=== PATIENT | female | born 1990 | race Caucasian/White ===

== ENCOUNTER 2020-04-20 07:13 | Outpatient (CLI) | payer OTHER, SELFPAY ==
[2020-04-20 08:07] LABS: Beta HCG Quantitative < 2.39 mIU/ML
== END 2020-04-20 07:14 | disposition home or self-care (01) ==
PROVIDERS: PCP Nurse Practitioner Family; Visit Provider Nurse Practitioner Obstetrics & Gynecology
DX: Z30.9 Encounter for contraceptive management, unspecified (principal)
CPT/HCPCS: 36415; 84702

== ENCOUNTER 2023-01-08 06:43 | Inpatient (IN) | payer OTHER, SELFPAY ==
[2023-01-08] VITALS (14 sets, daily range): BP systolic 81–148; BP diastolic 40–106; PULSE 79–220; RESP 16–18; TEMP 36.3–37; O2SAT 99; BMI 32.6
--- NOTE | 2023-01-08 07:05 | PC.NURSE ---
Patient is refusing antibiotics at this time.
--- NOTE | 2023-01-08 07:06 | PC.NURSE ---
Addendum entered by Justina Pettit RN 01/08/23 09:12: this note was completed at 0706 Original Note: Education has been provided regarding GBS status and risk to at . Patient continues to refuse antibiotics.
[2023-01-08] MEDS: LACTATED RINGERS 1,000 ML 125 ML IV CONT (07:09)
[2023-01-08 07:17] LABS: Basophils Percent Auto 0.2 % (0.2-1.2); Eosinophils Percent Auto 0.1 % (0-4.4); Hematocrit 37.7 % (37.0-47.0); Hemoglobin 12.9 g/dL (12.0-15.0); Immature Granulocyte Absolute 0.06 K/mm3 (0.00-0.031); Immature Granulocyte Percent A 0.3 % (0-0.5); Lymphocytes Absolute Auto 0.91 K/mm3 (0.9-3.2); Lymphocytes Percent Auto 5.3 % (18.3-44.2); Mean Corpuscular HGB Conc 34.2 g/dl (32-36); Mean Corpuscular Hemoglobin 28.6 pg (26-34); Mean Corpuscular Volume 83.6 fl (80-100); Mean Platelet Volume 11.5 fl (7.4-10.4); Monocytes Absolute Auto 0.9 K/mm3 (0.1-0.6); Monocytes Percent Auto 5.1 % (2.6-8.5); Neutrophils Absolute Auto 15.3 K/mm3 (1.3-6.7); Platelet Count Result 249 k/mm3 (150-375); Red Blood Count 4.51 M/mm3 (4.2-5.4); Red Cell Distribution Width 13.8 % (11.5-14.5); White Blood Count 17.2 K/mm3 (4.5-10.0)
[2023-01-08 09:10] LABS: Hepatitis B Surface Antigen Negative (Negative)
[2023-01-08 09:16] LABS: Rubella IgG Antibody 8.3 IU/ML
[2023-01-08 10:23] LABS: HIV 1/2 Ab P24 Ag Result Negative (Negative)
--- NOTE | 2023-01-08 10:58 | PM.OBPRVD ---
OB - Vaginal Delivery Note Procedure Delivery date: 01/09/23 Events: No Care Delivery monitor: External FHT Route of delivery: Episiotomy description: None Laceration Description: Other (Small introital tear non bleeding no suture required) Specimen: Yes (Placenta and cord) Quantitative Blood Loss (ml): 200 Anesthesia type: None Disposition: Floor Complications: No immediate complications Narrative: She was admitted after arriving via EMS. She arrived on Labor and delivery she was 9 cm. She refused IV antibiotics that was recommended. She reports no care. She was planning on delivering at home but stated it was taking a while. She started having contractions at 3:00 p.m.. This is her 4th . She continued to progress in labor and had spontaneous rupture of membranes at that time she had anterior lip and she progressed to complete soon after. She delivered a male in the direct OP presentation the nose and mouth were suction with the bulb at the perineum she then pushed and anterior shoulders and the rest the was delivered infant was vigorously crying upon delivery and placed on maternal abdomen. Delayed cord clamping for approximately 60 seconds until the cord was a pulsatile and then the cord was doubly clamped and cut. There was noted to be terminal meconium. She refused Pitocin. Placenta delivered spontaneously and appeared intact. The membranes on 1 side did appear sheared. She did not allow uterine massage. Her bleeding was minimal. She sustained a small laceration at the introitus which was not bleeding. Baby Date of : 01/08/23 Time of : 07:46 Weeks of gestation at delivery: 39 Infant gender: Male Weight (pounds): 7 Weight (ounces): 0 presentation: vertex position: Right Occiput Posterior Placenta delivery description: Spontaneous Cord Vessel Description: 3 Vessels score one minute: 8 score five minutes: 9 AMG Delivery Billing Delivery Delivery: Delivery Charge
[2023-01-08] MEDS: WITCH HAZEL 40 PADS 1 PAD TOPICAL (11:45)
[2023-01-08] MEDS: BENZOCAINE 20% AER SPR (*SP) 56 GM CAN 1 SPRAY TOPICAL (11:46)
--- NOTE | 2023-01-08 11:50 | OBPPTRN ---
Patient transferred to post room # 283 via wheelchair. PT accompanied by in open crib. Support person present and then left. PT introductions made and plan of care discussed per post , pain management, breast/bottle feeding, daily care activities. PT received such instructions and no barriers to learning identified at this time. PT received such instructions per one to one discussion, mom baby care guide and demonstrations this shift. Oriented to unit, room, information board, rooming in, admission packet and security measures. Patient verbalizes understanding.
[2023-01-08 12:43] LABS: Rapid Plasma Reagin Non-Reactive (NonReactive)
[2023-01-08] MEDS: IBUPROFEN 600 MG TABLET PO (12:50)
[2023-01-08] MEDS: ACETAMINOPHEN 325 MG TABLET 650 MG PO (17:02)
[2023-01-08] MEDS: DOCUSATE SODIUM 100 MG CAPSULE PO (17:02)
[2023-01-08 20:53] LABS: Amphetamine Screen Urine Negative (Negative); Barbiturate Screen Urine Negative (Negative); Benzodiazepines Screen Urine Negative (Negative); Cannabinoid Screen Urine Negative (Negative); Cocaine Screen Urine Negative (Negative); Methadone Screen Urine Negative (Negative); Opiate Screen Urine Negative (Negative); Phencyclidine Screen Urine Negative (Negative)
[2023-01-09 04:10] VITALS: BP 112/69; PULSE 69; RESP 18; TEMP 36.6; O2SAT 100
--- NOTE | 2023-01-09 04:20 | PC.NURSE ---
RN attempted patient's morning H+H lab draw, was unsuccessful, and patient now refusing blood draw. Bleeding minimal with no lightheadedness.
--- NOTE | 2023-01-09 07:20 | PM.IMHP ---
H&P: HPI History of Present Illness Date/Time: 01/08/23 07:20 Chief Complaint: Labor Narrative: She presented via EMS to Labor and delivery in labor. She states she did not get care. She was anticipating delivering at home she started shorty at 3:00 p.m. yesterday and states she called EMS due to the Labor taking longer than what she has had in the past. She is a . Last baby was 19 months ago. On arrival to Labor and delivery she was 9 cm shorty regularly bag of water intact. No records or labs available. Review of Systems Review of Systems: All systems reviewed & are unremarkable except as noted in HPI and below Constitutional: Constitutional: Reports no additional constitutional complaints and Denies headache(s) Eyes: Eyes: Denies spots in vision ENT: Reports system reviewed and no additional complaints, except as documented and Denies headache(s) Cardiovascular: Cardiovascular: Denies chest pain and Denies dyspnea Respiratory: Respiratory: Denies dyspnea Gastrointestinal: Gastrointestinal: Reports no additional gastrointestinal complaints Genitourinary: Genitourinary: Reports amenorrhea Musculoskeletal: Musculoskeletal: Reports no additional musculoskeletal complaints Integumentary/Breasts: Skin/Breast: Denies breast mass and Denies rash Neurologic: Denies headache(s) Psychiatric: Psychiatric: Reports no additional psychiatric complaints [facility] Social History Social History (Updated 03/27/22 @ 13:25 by Aleja Frederick [facility]) Smoking status: Never smoker Second hand tobacco smoke exposure: No Alcohol intake: never Substance use: never Substance use type: does not use Lack of Transportation: No Lack of Food: Never True Current Housing: I Have Housing Concerned About Future Housing: No Difficulty Paying Gas/Electric Bills: No Difficulty Paying for Meds: No Currently Unemployed: No Education: Associate Degree Difficulty w/ Childcare or Family Care: No Living arrangements: with family Occupation/Education: occupation Gender identity (if verbalized by the patient): Female Sexual Orientation (if Verbalized by the Patient): Straight or Heterosexual Spiritual care concerns: No Agree to blood products: Yes Meds Home Medications and Allergies Home Medications Medication Instructions Recorded Confirmed Type Vitamin D (with calcium) 1 tab-cap PO DAILY 01/08/23 01/08/23 History cyanocobalamin (vitamin B-12) 1 tablet PO DAILY 01/08/23 01/08/23 History vits no.126-ferrous fum 1 tablet PO DAILY 01/08/23 01/08/23 History 28 mg iron-folic acid 800 mcg tablet (Classic ) Allergies Allergy/AdvReac Type Severity Reaction Status Date / Time latex Allergy Intermediate CONTACT Verified 01/08/23 06:56 RASH, REDNESS, ITCHY Vital Signs Vital Signs - 24 hr 01/08/23 07:27 01/08/23 07:32 01/08/23 08:02 Temperature Pulse Rate 109 H 100 Respiratory Rate Blood Pressure 139/106 H 148/86 H Pulse Oximetry Oxygen Delivery Room Air 01/08/23 08:17 01/08/23 08:31 01/08/23 08:47 Temperature Pulse Rate 100 220 H 101 H Respiratory Rate Blood Pressure 81/53 L 104/58 L 102/40 L Pulse Oximetry Oxygen Delivery 01/08/23 09:01 01/08/23 09:16 01/08/23 10:01 Temperature Pulse Rate 155 H 100 96 Respiratory Rate Blood Pressure 94/60 L 137/68 144/85 H Pulse Oximetry Oxygen Delivery 01/08/23 08:00 01/08/23 11:55 01/08/23 20:15 Temperature 97.5 F L 98.6 F Pulse Rate 105 H Respiratory Rate 16 Blood Pressure 118/60 Pulse Oximetry 99 Oxygen Delivery Room Air 01/08/23 20:15 01/09/23 04:10 Temperature 97.5 F L 97.9 F Pulse Rate 79 69 Respiratory Rate 18 18 Blood Pressure 118/71 112/69 Pulse Oximetry 100 Oxygen Delivery Exam Const: General: no acute distress Eyes: General: appearance normal, both eyes and all related structure
[2023-01-09 08:05] VITALS: BP 125/65; PULSE 83; RESP 18; TEMP 36.5; O2SAT 99
[2023-01-09] MEDS: MULTIVIT/MIN/PREN/FOL AC/IRON TABLET 1 TAB PO (08:20)
[2023-01-09] MEDS: IBUPROFEN 600 MG TABLET PO (08:20)
[2023-01-09] MEDS: DOCUSATE SODIUM 100 MG CAPSULE PO (08:20)
--- NOTE | 2023-01-09 10:27 | PM.OBPNVD ---
OB - PN: Subj Subjective Date/time seen: 01/09/23 10:27 Interval history: She states baby is doing well. No leg pain. Request discharge. Patient comments: pain well controlled, tolerating diet and other (Decreasing lochia.) OB - PN: Obj Data Labs 01/08/23 07:01 Labs: Laboratory Results - last 24 hr 01/08/23 01/08/23 07:01 20:12 Urine Opiates Screen Negative Urine Methadone Screen Negative Ur Barbiturates Screen Negative Ur Phencyclidine Scrn Negative Ur Amphetamine Screen Negative U Benzodiazepines Scrn Negative Urine Cocaine Screen Negative U Cannabinoids Screen Negative RPR Non-reactive OB - PN A/P Assessment and Plan (1) Vaginal delivery: Code(s): O80 - Encounter for full-term uncomplicated delivery Status: Acute Assessment and Plan: She refused blood count lab. She request discharge. Discharge instructions discussed. Plan day: 1 Plan: routine care Comments: Patient doing well. Time Spent With Patient Time: Total time spent is greater than 50% in coordination of care (as documented) at patient's floor/unit and/or counseling patient: Exam Psych: Affect: normal affect Other: Abd: fundus firm below umbilicus, nontender Ext: nontender
--- NOTE | 2023-02-02 10:18 | PM.OBDSVD ---
DS: Admitting Diagnosis Discharge Date 01/09/23 Admitting Diagnosis Active labor DS: Discharge Diagnosis Discharge Diagnosis (1) Vaginal delivery: Code(s): O80 - Encounter for full-term uncomplicated delivery Status: Acute OB - DS: Summary Hospital Course Hospital Course: She was admitted in active labor through EMS. She had refused IV antibiotics for unknown GBS, she had an uncomplicated vaginal delivery. She did well . She refused CBC. Baby was doing well. She requested discharge to home on day 2. OB Procedures : Ultrasound OB Procedures Intrapartum: Spontaneous Vag Delivery OB Procedures: : None Peripartum Data Infant Delivery Method: Natural Vaginal Laceration Description: Other (Small introital tear non bleeding no suture required) Episiotomy description: None complications: none Status at Discharge Functional status at discharge: independent ambulation Time Spent with Patient Time attestation: Total time spent providing and/or coordinating discharge services: Exam Const: General: cooperative Orientation/consciousness: oriented to person, oriented to place and oriented to time HENMT: Face/Nose/Sinus: Normal external nose present Eyes: General: appearance normal, both eyes and all related structures Resp: Effort & Inspection: normal respiratory effort GI: Inspection: normal to inspection Skin: General skin exam: normal color Neuro: General: oriented to person, oriented to place and oriented to time Extrem: General: normal to inspection and no calf tenderness Psych: Appearance: grossly normal Mental Status: mental status grossly normal DS: Data Data Completed and Pending Completed studies during hospitalization: Pending at discharge 01/08/23 10:55 Surgical [PTH] Routine Discharge Plan Discharge Attending physician on discharge: Peterson Albert Discharging Clinician: Peterson Albert Anticipated Discharge Date/Time: 01/09/23 10:25 Patient Disposition: Home, Self-Care Activity: may shower and pelvic rest Diet: regular Discharge Instructions: Education: Mom and Baby Guide Given to: Mother Follow-Up: Call your delivering provider's office for an appointment to be seen in: 6 Week Mom and baby should come to the [facility] for the follow-up appointment. Appointment Date/Time: January 10, 2023 at 3:30 pm What to expect at your follow-up visit: Blood Pressure Check Physical Assessment Call [phone] if you are unable to keep your appointment time. BREAST CARE: * Wear a snug supportive bra. * For engorgement discomfort: Breast Feeding: * Apply warm moist washcloths * Express milk as needed to relieve engorgement * Wear loose clothing Bottle Feeding: * May apply ice packs * For sore nipples: * Identify correct latch-on * Apply warm moist washcloths before and after nursing * Air dry nipples after nursing * May apply Lansinoh cream to nipples EPISIOTOMY/PERINEAL CARE: * Until bleeding stops, use your jaguar bottle after urinating * Change your pad frequently throughout the day * You may take sitz baths several times a day (fill your bathtub with warm water and soak for 20 minutes.) Do NOT bathe in the water * No tub baths until seen by your physician - You may shower ACTIVITY: * Rest as much as possible. * Do not exercise or lift anything heavier than your baby (such as laundry or other children.) * Avoid stairs or driving as much as possible. * Do not put anything into the vagina. No douching, tampons, or sexual activity until seen by physician. NOTIFY PHYSICIAN IF YOU HAVE ANY QUESTIONS OR IF ANY OF THE FOLLOWING SYMPTOMS OCCUR: * If your episiotomy or incision becomes red, swollen, or more painful than what you have experienced in the hospital. * If your vaginal bleeding becomes foul smelli
== END 2023-01-09 10:45 | disposition home or self-care (01) | DRG 560 ==
LOC: ANHLDR 06:48 → ANHOB2 11:58
PROVIDERS: Admitting Provider Obstetrics & Gynecology; Visit Provider Obstetrics & Gynecology
DX: O77.0 Labor and delivery complicated by meconium in amniotic fluid (principal); Z37.0 Single live birth; O70.0 First degree perineal laceration during delivery; Z3A.39 39 weeks gestation of pregnancy
CPT/HCPCS: 36415; 80307; 85025; 86592; 86703; 86762; 86850; 86900; 86901; 87340; 88307; A9270; G0432; J7120